=== PATIENT | male | born 1970 | race Two or more races ===

== ENCOUNTER 2018-09-02 22:00 | Emergency (ER) | payer SELFPAY ==
[~2018-09-02] VITALS: Ht 170.2 cm; Wt 118.4 kg
--- NOTE | 2018-09-02 22:10 | NUR ---
SAVANNA FOUND OUTSIDE 711 WITH [employer] ALCOHOL BOTTLES. PT OPENS EYES TO PAINFUL STIMULI, BUT DOZES BACK TO SLEEP. VITAL SIGNS STABLE. NO ACUTE DISTRESS NOTED AT THIS TIME. PT PLACED ON CONTINUOUS COUPLER, WILL CONTINUE TO MONITOR
--- NOTE | 2018-09-02 23:15 | NUR ---
BROUGHT BY RADIOLOGY FOR CT
--- NOTE | 2018-09-02 23:26 | NUR ---
PT RETURNED FROM CT
--- NOTE | 2018-09-03 00:23 | NUR ---
PT RESTING COMFORTABLY IN BED. VITAL SIGNS STABLE. STILL ON CONTINUOUS PALLIATIVE SENIOR NP. WILL CONTINUE TO MONITOR
--- NOTE | 2018-09-03 02:15 | NUR ---
PT RESTING COMFORTABLY IN BED. VITAL SIGNS STABLE. STILL ON CONTINUOUS NEGATIVE CHECKER. WILL CONTINUE TO MONITOR
--- NOTE | 2018-09-03 04:11 | NUR ---
PT RESTING COMFORTABLY IN BED. VITAL SIGNS STABLE. STILL ON CONTINUOUS BODY HANGER. WILL CONTINUE TO MONITOR
--- NOTE | 2018-09-03 05:00 | NUR ---
PT [id number]. RESPIRATIONS EVEN AND UNLABORED. NO ACUTE DISTRESS NOTED AT THIS TIME.
--- NOTE | 2018-09-03 05:20 | NUR ---
PT STATES HE WILL GO TO HIS SON'S HOUSE VIA BUS. PT HAS ENOUGH BUS FARE. Patient discharged to home in stable condition. Written and verbal after care instructions given. Patient verbalizes understanding of instruction. Pt ambulatory with a steady gait
[2018-09-03 05:21] VITALS: BP 138/79
== END 2018-09-03 05:22 | disposition home or self-care (01) ==
LOC: ER 22:06
DX: F10.129 Alcohol abuse with intoxication, unspecified (principal); R41.82 Altered mental status, unspecified; Y90.9 Presence of alcohol in blood, level not specified
CPT/HCPCS: 70450; 82962; 99284; A4606